=== PATIENT | female | born 1965 | race African-American/Black ===

== ENCOUNTER 2019-11-16 17:11 | Emergency (ER) | payer MEDICAID, OTHER ==
[~2019-11-16] VITALS: Ht 154.9 cm; Wt 84.4 kg
[2019-11-16] MEDS ORDERED: KETOROLAC TROMETH 60MG/2ML VIAL IM ONE (17:30)
[2019-11-16] MEDS ORDERED: KETOROLAC TROMETH 60MG/2ML VIAL ONE (17:30)
[2019-11-16 17:41] VITALS: BP 181/94
== END 2019-11-16 19:00 | disposition home or self-care (01) ==
LOC: ER 17:11
DX: G89.29 Other chronic pain (principal); M54.5 Low back pain
CPT/HCPCS: 96372; 99283; J1885

== ENCOUNTER 2019-12-05 19:52 | Inpatient (IN) | payer MEDICAID ==
[~2019-12-05] VITALS: Ht 154.9 cm; Wt 89.3 kg
[2019-12-05 22:55] LABS: Basophils # (auto) 0 10 ^3/uL (0-0.2); Basophils % (auto) 0.3 % (0.0-2.0); Eosinophils # (auto) 0 10 ^3/uL (0-0.8); Hematocrit 31.7 % (36.0-46.0); Hemoglobin 9.5 g/dL (12.2-16.2); Lymphocytes # (auto) 0.6 10 ^3/uL (0.4-5.4); Lymphocytes % (auto) 5.3 % (10.0-50.0); Mean Corpuscular Hemoglobin 20.3 pg (28.0-32.0); Mean Corpuscular Hgb Conc. 30.1 g/dL (32.0-36.0); Mean Corpuscular Volume 67.2 fL (80.0-100.0); Monocytes # (auto) 0.6 10 ^3/uL (0-1.3); Monocytes % (auto) 5.3 % (0.0-12.0); Neutrophils # (auto) 10.8 10 ^3/uL (1.6-8.6); Neutrophils % (auto) 89.1 % (37.0-80.0); Platelet Count (auto) 191 10^3/uL (140-450); Red Blood Cells 4.71 10^6/uL (4.0-5.20); White Blood Cell 12.1 10^3/uL (4.4-10.8)
[2019-12-05 23:03] LABS: INR 1.33 (0.9-1.15); Partial Thromboplastin Time 53.8 sec (23.64-32.05)
[2019-12-05 23:05] LABS: Albumin 2.9 g/dL (3.4-5.0); Calcium 8.6 mg/dL (8.5-10.1); Magnesium 1.6 mg/dL (1.6-2.6); Potassium 3.5 mmol/L (3.5-5.1)
[2019-12-05 23:07] LABS: Lactic Acid w/Reflex 2.1 mmol/L (0.4-2.0)
[2019-12-05 23:11] LABS: BUN/Creatinine Ratio 14.4; Bilirubin, Total 0.8 mg/dL (0.2-1.0); Total Protein 7.7 g/dL (6.4-8.2)
[2019-12-06] MEDS ORDERED: cefTRIAXone 1GM/50ML D5W 50 ML IV ONE (02:15)
[2019-12-06] MEDS ORDERED: CLINDAMYCIN 900MG IV 50 ML IV ONE (02:15)
[2019-12-06] MEDS ORDERED: SODIUM CHLORIDE 0.9% 1,000 ML IV SCH ×2 (02:36)
[2019-12-06] MEDS ORDERED: ONDANSETRON HCL 4 MG/2 ML VIAL IV PRN (02:45)
[2019-12-06] MEDS ORDERED: ACETAMINOPHEN 325 MG TAB PO PRN (02:45)
[2019-12-06] MEDS ORDERED: DEXTROSE (50%) 50ML SYRG IV PRN (02:45)
[2019-12-06] MEDS ORDERED: ACETAMINOPHEN 500 MG TAB PO PRN (02:45)
[2019-12-06] MEDS ORDERED: NITROGLYCERIN 0.4 MG SL TAB SL PRN (02:45)
[2019-12-06] MEDS ORDERED: MORPHINE SULF INJ 2 MG/ML SYRINGE 1ML IV PRN (02:45)
[2019-12-06 04:40] VITALS: BP 153/90
--- NOTE | 2019-12-06 04:40 | NUR ---
Telemetry admit from [facility] admitted to Telemetry unit. Patient oriented to EMMA TOMLINSON RN primary RN, unit, room, bed, and unit policies regarding patient care and visiting hours. Patient now on continuous telemetry monitoring, tele box # 5 and telemetry reading on arrival to unit is SINUS TACHYCARDIA AT 125 BEATS PER MINUTE. Patient weighed by bedscale and encouraged to call if they need something. All questions and concerns addressed, patient verbalized understanding. Bed in lowest locked position, side rails up x2, call light within reach. Will round every hour and as needed and continue to monitor.
[2019-12-06] MEDS: ACCU-CHEK COMFORT CURVE STRIP VI SCH ×6 (05:09→23:44)
[2019-12-06] MEDS: InsuLIN REG 1unit/0.01ml Soln (100units/ml) SC SCH ×6 (05:18→23:48)
[2019-12-06] MEDS: HYDROcodone-ACET 5/325MG TAB PO PRN ×2 (05:52→17:03)
[2019-12-06] MEDS ORDERED: ALBUTEROL SULF HFA 90MCG INH 200DOSE IN SCH ×2 (06:00)
--- NOTE | 2019-12-06 06:00 | NUR ---
Wound care photos obtained of patient's sacrum, patient tolerated well. Will fill out wound care form and place in wound care box. Will continue care.
--- NOTE | 2019-12-06 06:00 | NUR ---
Nasal MRSA swab collected and sent to lab via bullet. Patient tolerated well. Will continue care.
--- NOTE | 2019-12-06 07:15 | NUR ---
Closing Note Patient lying in bed, eyes closed, respirations even and unlabored, appears asleep. No s/s of distress. Care endorsed to dayshift RN.
[2019-12-06 08:00] VITALS: BP 111/70
--- NOTE | 2019-12-06 08:00 | NUR ---
Opening Shift Note Assumed care of patient, awake and alert. No S/S /SOB or pain. Patient restless in bed, positions change, dark and quiet environment provided for comfort. Instructed on POC and to call for assist PRN, will continue to monitor for changes Q1hr and PRN. Fall precautions in place per safety protocol.
[2019-12-06] MEDS ORDERED: AML5T PO (09:18)
[2019-12-06] MEDS ORDERED: SERT-274 PO (09:18)
[2019-12-06] MEDS ORDERED: TRAZ50TA2 PO (09:18)
[2019-12-06] MEDS ORDERED: INDO25CA18 PO (09:18)
[2019-12-06] MEDS ORDERED: OMEP20TA PO (09:18)
[2019-12-06] MEDS ORDERED: RIV20T PO (09:18)
[2019-12-06] MEDS: MORPHINE SULF INJ 2 MG/ML SYRINGE 1ML IV PRN ×2 (09:40→23:05)
--- NOTE | 2019-12-06 09:42 | NUR ---
PAIN Patient requesting pain medication for pain 03/31. Administered morphine at this time per pain scale. Will cont to monitor patient.
[2019-12-06] MEDS ORDERED: DOXYCYCLINE 100 MG TAB/CAP PO SCH (10:00)
[2019-12-06] MEDS ORDERED: ASCORBIC ACID 1,000 MG TAB PO SCH (10:00)
[2019-12-06] MEDS ORDERED: ZINC SULFATE 220mg CAP or TAB PO SCH (10:00)
[2019-12-06] MEDS ORDERED: ENOXAPARIN SOD 40 MG/0.4 ML SYRINGE SC SCH (10:00)
[2019-12-06] MEDS ORDERED: CHOLECALCIFEROL (VITD3) 1,000UNIT=25mCg TAB PO SCH (10:00)
[2019-12-06 10:42] LABS: Basophils # (auto) 0 10 ^3/uL (0-0.2); Basophils % (auto) 0.2 % (0.0-2.0); Eosinophils # (auto) 0 10 ^3/uL (0-0.8); Mean Corpuscular Volume 66.8 fL (80.0-100.0); Neutrophils # (auto) 6.2 10 ^3/uL (1.6-8.6)
[2019-12-06 10:45] LABS: Hematocrit 33.1 % (36.0-46.0); Hemoglobin 10.1 g/dL (12.2-16.2); Lymphocytes # (auto) 0.7 10 ^3/uL (0.4-5.4); Lymphocytes % (auto) 10.4 % (10.0-50.0); Mean Corpuscular Hemoglobin 20.3 pg (28.0-32.0); Mean Corpuscular Hgb Conc. 30.4 g/dL (32.0-36.0); Monocytes # (auto) 0.3 10 ^3/uL (0-1.3); Monocytes % (auto) 4.3 % (0.0-12.0); Neutrophils % (auto) 85.1 % (37.0-80.0); Nucleated Red Blood Cells % 0.2 %; Platelet Count (auto) 209 10^3/uL (140-450); Red Blood Cells 4.96 10^6/uL (4.0-5.20); Red Cell Distribution Width 18.2 % (11.8-14.3); White Blood Cell 7.2 10^3/uL (4.4-10.8)
[2019-12-06 10:54] LABS: Calcium 8.4 mg/dL (8.5-10.1); Potassium 3.4 mmol/L (3.5-5.1)
[2019-12-06 10:56] LABS: BUN/Creatinine Ratio 15.8
--- NOTE | 2019-12-06 11:10 | NUR ---
COVID Patient covid-19 results back negative. Patient will be transferred to room 218B with primary RN Lalito.
--- NOTE | 2019-12-06 11:11 | NUR ---
Hospitalist at bedside MD Josue at bedside, aware of patient status. Per MD Izquierdo, she will put in orders for Abx and get a surgical consult. Will cont to monitor patient at this time.
--- NOTE | 2019-12-06 12:14 | NUR ---
Patient transferred to room 218b with MELISSA Starkey.
[2019-12-06] MEDS ORDERED: LORazepam 0.5 MG TAB PO PRN (12:15)
[2019-12-06] MEDS ORDERED: POTASSIUM EFFERVESENT TAB 25 MEQ PO ONE (12:15)
--- NOTE | 2019-12-06 12:30 | NUR ---
PT IN LOW FOWLERS, AWAKE, ALERT, ORIENTED PT TO ROM ENVIRONMENT. PT ABLE TO VERBALIZE NEEDS, EFFORTLESS BREATHING. BED IN LOWEST POSITION, CALL LIGHT WITHIN REACH. WILL CONTINUE TO MONITOR.
[2019-12-06 13:00] VITALS: BP 116/63
[2019-12-06] MEDS ORDERED: MAGNESIUM OXIDE 400 MG TAB PO ONE (13:00)
[2019-12-06] MEDS: LINEZOLID 600MG/300ML 300 ML IV SCH ×2 (13:10→23:30)
[2019-12-06] MEDS: SODIUM CHLORIDE 0.9% 1,000 ML IV SCH (13:11)
[2019-12-06] MEDS ORDERED: OMNIPAQUE ORAL SOLN 500ml 12mg/ml PO ONE (13:26)
[2019-12-06] MEDS: metroNIDAZOLE 500 MG TAB PO SCH ×2 (13:33→23:30)
[2019-12-06] MEDS: MEROPENEM 1GM IVPB 100 ML IV SCH ×2 (15:16→20:00)
[2019-12-06] MEDS ORDERED: IOHEXOL 300 MG/ML 100ML BOTTLE IJ ONE (15:50)
[2019-12-06] MEDS: RIVAROXABAN 20 MG TAB PO SCH (16:56)
[2019-12-06 17:00] VITALS: BP 129/57
--- NOTE | 2019-12-06 19:25 | NUR ---
opening note pt A&Ox4. respirations even and nonlabored on room air. POC discussed. bed in low locked position, call light within reach.
[2019-12-06 22:00] VITALS: BP 126/57
--- NOTE | 2019-12-06 23:00 | NUR ---
pain c/o pain at upper right gluteal area, /10. pt will be medicated appropriately.
[2019-12-06] MEDS: traZODone HCL 50 MG TAB PO SCH (23:30)
[2019-12-07] MEDS: MEROPENEM 1GM IVPB 100 ML IV SCH ×3 (03:30→20:24)
[2019-12-07] MEDS: ACCU-CHEK COMFORT CURVE STRIP VI SCH ×6 (03:31→23:42)
[2019-12-07] MEDS: InsuLIN REG 1unit/0.01ml Soln (100units/ml) SC SCH ×6 (03:33→23:41)
[2019-12-07] MEDS: metroNIDAZOLE 500 MG TAB PO SCH ×3 (05:06→22:06)
--- NOTE | 2019-12-07 05:07 | NUR ---
PAIN c/o pain at right upper gluteal area, 8/10. will medicate pt appropriately
[2019-12-07] MEDS: MORPHINE SULF INJ 2 MG/ML SYRINGE 1ML IV PRN (05:13)
[2019-12-07 05:59] VITALS: BP 105/79
[2019-12-07 06:32] LABS: Basophils # (auto) 0 10 ^3/uL (0-0.2); Basophils % (auto) 0.3 % (0.0-2.0); Eosinophils # (auto) 0 10 ^3/uL (0-0.8); Eosinophils % (auto) 0.1 % (0.0-7.0); Hematocrit 30.5 % (36.0-46.0); Hemoglobin 9.4 g/dL (12.2-16.2); Lymphocytes # (auto) 0.8 10 ^3/uL (0.4-5.4); Lymphocytes % (auto) 11.4 % (10.0-50.0); Mean Corpuscular Hemoglobin 20.3 pg (28.0-32.0); Mean Corpuscular Hgb Conc. 30.9 g/dL (32.0-36.0); Mean Corpuscular Volume 65.5 fL (80.0-100.0); Monocytes # (auto) 0.3 10 ^3/uL (0-1.3); Monocytes % (auto) 4.8 % (0.0-12.0); Neutrophils # (auto) 5.9 10 ^3/uL (1.6-8.6); Neutrophils % (auto) 83.4 % (37.0-80.0); Nucleated Red Blood Cells % 0.1 %; Platelet Count (auto) 218 10^3/uL (140-450); Red Blood Cells 4.65 10^6/uL (4.0-5.20); Red Cell Distribution Width 18.1 % (11.8-14.3)
[2019-12-07 06:56] LABS: Albumin 2.4 g/dL (3.4-5.0); Calcium 8.6 mg/dL (8.5-10.1); Potassium 3.9 mmol/L (3.5-5.1)
[2019-12-07 07:00] LABS: BUN/Creatinine Ratio 17.2; Bilirubin, Total 0.5 mg/dL (0.2-1.0); Total Protein 7.1 g/dL (6.4-8.2)
--- NOTE | 2019-12-07 07:21 | NUR ---
closing note pt resting in left lateral position. pt does not show s/s of pain or discomfort at this time. respirations even and nonlabored on room air. bed in low locked position, call light within reach. endorsed care to MELISSA Starkey.
[2019-12-07 09:00] VITALS: BP 110/77
[2019-12-07] MEDS: SODIUM CHLORIDE 0.9% 1,000 ML IV SCH (09:15)
[2019-12-07] MEDS: LINEZOLID 600MG/300ML 300 ML IV SCH ×2 (09:47→22:06)
[2019-12-07] MEDS: MAGNESIUM OXIDE 400 MG TAB PO SCH (09:47)
--- NOTE | 2019-12-07 10:29 | NUR ---
DR. ALTMAN IN TO SEE PT. PLAN OF CARE DISCUSSED.
--- NOTE | 2019-12-07 11:07 | NUR ---
WOUND CARE NOTE: WOUND CARE IN TO SEE PATIENT PER WOUND CARE REQUEST. PATIENT ADMITTED TO [facility] FOR RULE OUT COVID AND HYPERGLYCEMIA. PATIENT'S SHAYNA SCORE IS 21. BEDSIDE NURSE NOTED SKIN INTEGRITY ISSUE UPON ADMISSION. PHOTOGRAPH TAKEN AT THAT TIME FOR REFERENCE. PATIENT HAS A SKIN TEAR TO THE RIGHT BUTTOCK. PATIENT ADVISES THAT IT STARTING ITCHING AND SHE STARTED SCRATCHING BACK THERE. CLEANSED WITH NORMAL SALINE, PATTED DRY WITH STERILE GAUZE, APPLIED THERAHONEY AND OPTIFOAM GENTLE SACRAL DRESSING. RECOMMEND: BID/PRN DRESSING CHANGE TO SACRUM. SKIN/WOUND CARE PLAN. DIETARY CONSULT. CONTINUED MONITORING BY WOUND CARE TEAM. Addendum: 12/07/19 at 1532 by JERRY KOHLER RN RN Amended: Links added.
[2019-12-07] MEDS: Glucerna Carbsteady SHAKE Vanilla 8oz PO SCH ×2 (12:00→18:49)
[2019-12-07 13:00] VITALS: BP 113/58
[2019-12-07 17:00] VITALS: BP 117/53
[2019-12-07] MEDS: RIVAROXABAN 20 MG TAB PO SCH (17:04)
[2019-12-07] MEDS: HYDROcodone-ACET 5/325MG TAB PO PRN ×2 (17:04→22:10)
--- NOTE | 2019-12-07 17:33 | NUR ---
DR. CALVERT IN TO SEE PT. PLAN OF CARE DISCUSSED.
--- NOTE | 2019-12-07 18:30 | NUR ---
COOLING MEASURES IN PLACE.
--- NOTE | 2019-12-07 19:05 | NUR ---
opening note pt A&Ox4. respirations even and nonlabored on room air. pt pulled IV access from right AC. IV catheter fully intact. pressure bandage applied. will start new IV access. POC discussed. bed in low locked position, rails x2, call light within reach.
--- NOTE | 2019-12-07 20:22 | NUR ---
IV access 22g placed at right AC, one attempt. pt tolerated IV insertion well. education given.
--- NOTE | 2019-12-07 21:34 | NUR ---
endorsed care to MELISSA Joy.
[2019-12-07 22:00] VITALS: BP 105/65
[2019-12-07] MEDS: traZODone HCL 50 MG TAB PO SCH (22:06)
--- NOTE | 2019-12-07 22:41 | NUR ---
Report given by Pia Mcgrath.
[2019-12-08] MEDS: MORPHINE SULF INJ 2 MG/ML SYRINGE 1ML IV PRN (01:48)
--- NOTE | 2019-12-08 02:33 | NUR ---
Report given to Coty Tom to assume the care.
--- NOTE | 2019-12-08 03:02 | NUR ---
Assumed care of patient from MELISSA Lambert. Patient is resting comfortably with eyes closed. Respirations are even and non-labored. No distress noted. Bed is in low locked position with side rails up x2. Call light is within reach. Will continue to monitor for changes PRN.
[2019-12-08] MEDS: MEROPENEM 1GM IVPB 100 ML IV SCH ×2 (03:53→11:35)
[2019-12-08] MEDS: ACCU-CHEK COMFORT CURVE STRIP VI SCH ×2 (03:53→08:33)
[2019-12-08] MEDS: InsuLIN REG 1unit/0.01ml Soln (100units/ml) SC SCH ×2 (03:54→08:00)
[2019-12-08] MEDS: HYDROcodone-ACET 5/325MG TAB PO PRN ×4 (03:59→22:05)
[2019-12-08 05:00] VITALS: BP 133/65
[2019-12-08] MEDS: SODIUM CHLORIDE 0.9% 1,000 ML IV SCH (05:15)
--- NOTE | 2019-12-08 05:32 | NUR ---
TEMPERATURE oral temperature is 99.7. Cooling measures in place.
[2019-12-08] MEDS: metroNIDAZOLE 500 MG TAB PO SCH ×3 (06:04→21:57)
[2019-12-08 06:13] LABS: Basophils # (auto) 0 10 ^3/uL (0-0.2); Eosinophils # (auto) 0 10 ^3/uL (0-0.8); Hemoglobin 8.7 g/dL (12.2-16.2); Lymphocytes # (auto) 0.7 10 ^3/uL (0.4-5.4); Mean Corpuscular Hemoglobin 20.6 pg (28.0-32.0); Monocytes # (auto) 0.5 10 ^3/uL (0-1.3); Nucleated Red Blood Cells % 0.1 %
[2019-12-08 06:15] LABS: Basophils % (auto) 0.5 % (0.0-2.0); Hematocrit 27.5 % (36.0-46.0); Lymphocytes % (auto) 9.2 % (10.0-50.0); Mean Corpuscular Hgb Conc. 31.5 g/dL (32.0-36.0); Mean Corpuscular Volume 65.5 fL (80.0-100.0); Monocytes % (auto) 6.4 % (0.0-12.0); Neutrophils # (auto) 6.6 10 ^3/uL (1.6-8.6); Neutrophils % (auto) 83.9 % (37.0-80.0); Platelet Count (auto) 254 10^3/uL (140-450); Red Cell Distribution Width 18.4 % (11.8-14.3); White Blood Cell 7.9 10^3/uL (4.4-10.8)
[2019-12-08 06:25] LABS: INR 1.23 (0.9-1.15); Partial Thromboplastin Time 51.3 sec (23.64-32.05)
[2019-12-08 06:32] LABS: Potassium 3.5 mmol/L (3.5-5.1)
[2019-12-08 06:43] LABS: Albumin 2.2 g/dL (3.4-5.0); BUN/Creatinine Ratio 24.6; Bilirubin, Total 0.3 mg/dL (0.2-1.0); Calcium 8.3 mg/dL (8.5-10.1); Total Protein 6.6 g/dL (6.4-8.2)
[2019-12-08] MEDS: Glucerna Carbsteady SHAKE Vanilla 8oz PO SCH ×3 (08:00→17:29)
[2019-12-08] MEDS: LINEZOLID 600MG/300ML 300 ML IV SCH (08:33)
[2019-12-08 09:00] VITALS: BP 129/59
[2019-12-08] MEDS: MAGNESIUM OXIDE 400 MG TAB PO SCH (10:00)
--- NOTE | 2019-12-08 10:30 | NUR ---
Paged Britney Naranjo to find out if patient will still have procedure, as US is negative for abscess.
--- NOTE | 2019-12-08 11:30 | NUR ---
Jose A called back, stated patient would not get surgery today and to put in a diet for patient.
--- NOTE | 2019-12-08 11:30 | NUR ---
Saadia at bedside, stated accu checks could be DC'd.
--- NOTE | 2019-12-08 11:46 | NUR ---
Est energy needs 4265-2570 kcal (20-25kcal/kg of BW) Est protein needs 90-99g (1-1.1g/kg BW, inc need for wound) Will reassess prn. Consider MVI/C BID for wound healing Addendum: 12/08/19 at [address] Amended: Links added.
[2019-12-08 13:00] VITALS: BP 120/81
--- NOTE | 2019-12-08 13:40 | NUR ---
Dressing change to patients left buttock wound per order. Patient tolerated well.
[2019-12-08] MEDS ORDERED: VANCOMYCIN PER PHARMACY 0 MG IV SCH (16:45)
[2019-12-08 17:00] VITALS: BP 123/61
--- NOTE | 2019-12-08 17:01 | NUR ---
Cooling measures in place for patients fever 101.3.
[2019-12-08] MEDS: RIVAROXABAN 20 MG TAB PO SCH (17:29)
[2019-12-08] MEDS: VANCOMYCIN 1GM/250ML 250 ML IV SCH (17:29)
--- NOTE | 2019-12-08 18:06 | NUR ---
Recheck on Temp 100.2F, patient continuing cooling measures.
--- NOTE | 2019-12-08 19:08 | NUR ---
Report given, care endorsed to MELISSA Joy
[2019-12-08] MEDS: PIPERACILLIN-TAZOB 3.375GM 100 ML IV SCH (19:46)
--- NOTE | 2019-12-08 20:00 | NUR ---
Opening Shift Note Assumed care of patient, awake, alert and oriented. No S/S of distress/SOB or pain. Instructed on POC and to call for assist PRN. Bed locked, in lowest position, call light within reach, side rails up x2. Will continue to monitor for changes Q1hr and PRN.
--- NOTE | 2019-12-08 21:26 | NUR ---
Elevated Temp Patients temp was 102.3. Patient stated that her eyes swell and she gets welts on her body when she takes tylenol. Cooling measures in place. Will reassess.
[2019-12-08] MEDS: traZODone HCL 50 MG TAB PO SCH (21:57)
[2019-12-08 22:00] VITALS: BP 158/70
--- NOTE | 2019-12-09 00:12 | NUR ---
TEMP REASSESSED Temperature now 99.2. Will continue to monitor
[2019-12-09] MEDS: SODIUM CHLORIDE 0.9% 1,000 ML IV SCH ×2 (01:15→21:15)
[2019-12-09] MEDS: PIPERACILLIN-TAZOB 3.375GM 100 ML IV SCH ×4 (02:08→19:44)
[2019-12-09 05:00] VITALS: BP 129/63
[2019-12-09] MEDS: VANCOMYCIN 1GM/250ML 250 ML IV SCH ×2 (06:28→17:28)
[2019-12-09] MEDS: metroNIDAZOLE 500 MG TAB PO SCH ×3 (06:29→21:11)
[2019-12-09 06:34] LABS: Basophils # (auto) 0 10 ^3/uL (0-0.2); Eosinophils # (auto) 0 10 ^3/uL (0-0.8); Eosinophils % (auto) 0.1 % (0.0-7.0); Monocytes # (auto) 0.4 10 ^3/uL (0-1.3); Red Blood Cells 4.41 10^6/uL (4.0-5.20)
[2019-12-09 06:35] LABS: Basophils % (auto) 0.7 % (0.0-2.0); Hematocrit 28.6 % (36.0-46.0); Lymphocytes # (auto) 1.1 10 ^3/uL (0.4-5.4); Lymphocytes % (auto) 16.4 % (10.0-50.0); Mean Corpuscular Hemoglobin 20.4 pg (28.0-32.0); Mean Corpuscular Hgb Conc. 31.4 g/dL (32.0-36.0); Monocytes % (auto) 5.7 % (0.0-12.0); Neutrophils # (auto) 5.2 10 ^3/uL (1.6-8.6); Neutrophils % (auto) 77.1 % (37.0-80.0); Platelet Count (auto) 274 10^3/uL (140-450); Red Cell Distribution Width 18.8 % (11.8-14.3); White Blood Cell 6.7 10^3/uL (4.4-10.8)
[2019-12-09] MEDS: HYDROcodone-ACET 5/325MG TAB PO PRN ×4 (06:43→21:11)
[2019-12-09 06:45] LABS: BUN/Creatinine Ratio 21.7; Calcium 8.8 mg/dL (8.5-10.1); Potassium 3.6 mmol/L (3.5-5.1)
--- NOTE | 2019-12-09 06:53 | NUR ---
DRESSING CHANGE dressing change to patient's left buttock. Patient tolerated well.
--- NOTE | 2019-12-09 07:50 | NUR ---
Opening Note Assumed pt care from NOC RN. Pt is a/ox4 with no s/s of distress or SOB. Pt is currently laying in bed with no complaints at this time. Discussed POC with pt; pt verbalized understanding. Safety measures maintained with call light within reach, bed in lowest position and side rails up. Will continue to monitor.
[2019-12-09] MEDS: Glucerna Carbsteady SHAKE Vanilla 8oz PO SCH ×3 (08:00→17:28)
[2019-12-09 09:00] VITALS: BP 134/77
[2019-12-09] MEDS: MAGNESIUM OXIDE 400 MG TAB PO SCH (09:02)
--- NOTE | 2019-12-09 09:59 | NUR ---
Dressing Changed Dressing to R buttocks changed. Pt tolerated well.
--- NOTE | 2019-12-09 10:46 | NUR ---
Dr Cochran at Bedside MD to see pt. Discussed POC with pt and need to stay another day due to increase in temperature. MD requests that blood cultures be repeated if pt's temperature is greater than 101. Will continue to monitor and notify NOC RN as needed.
[2019-12-09] MEDS ORDERED: ACETAMINOPHEN 500 MG TAB PO PRN (11:00)
[2019-12-09] MEDS ORDERED: SERTRALINE HCL 50 MG TAB PO ONE (11:00)
--- NOTE | 2019-12-09 12:48 | NUR ---
IV D/C'ed \IV to pt's R AC removed, no longer intact. Catheter was removed full intact. Site is asymptomatic. Pressure was applied to site for 3 minutes with gauze and then wrapped in coband. Pt informed of need to place another IV; pt requests that we insert a new IV after she eats her lunch. Will implement.
--- NOTE | 2019-12-09 12:55 | NUR ---
Elevated Temp Reported Temperature of 99.9 reported; cooling measures implemented, will continue to monitor.
[2019-12-09 13:00] VITALS: BP 158/76
--- NOTE | 2019-12-09 14:20 | NUR ---
IV Insertion 20G to pt's L FA inserted. One attempt made. Pt tolerated insertion well. Clean/sterile technique used.
--- NOTE | 2019-12-09 16:09 | NUR ---
assessment Patient is a 54 year old female who is alert and oriented. Patients cognitive abilities are intact. Prior to admission patient lived home with family and functioned with assistance. Per patient she will return home to her prior living arrangements post discharge and family will transport her home. Patients PCP is Dr Manuel. Patient has a fww for home use. Patient has a ulcer on her lower back and Sepsis. Patient may need home health for wound care and possible IV ABX. I informed patient she has a right to speak to a clinical social work aide regarding all care. I informed patient she has a right to participate in any and all discharge planning. Patient does not have a POA and advanced directive. I have offered patient information on POA and advanced directives. I informed the patient the advantages and benefits of having an Advanced Directive. Patient verbalized understanding and agreed to discharge plan. Addendum: 12/09/19 at 1611 by Aaliyah GUZMÁN Amended: Links added.
[2019-12-09 17:00] VITALS: BP 146/64
[2019-12-09] MEDS: FERROUS SULFATE 325 MG TAB PO SCH (17:28)
[2019-12-09] MEDS: RIVAROXABAN 20 MG TAB PO SCH (17:28)
--- NOTE | 2019-12-09 18:42 | NUR ---
Dressing Changed Dressing to pt's buttocks changed.
--- NOTE | 2019-12-09 20:40 | NUR ---
STOOL SPECIMEN SENT TO LAB FOR C-DIFF, STOOL OCCULT, STOOL WBC, AND STOOL CX.
[2019-12-09] MEDS: traZODone HCL 50 MG TAB PO SCH (21:11)
[2019-12-09 22:00] VITALS: BP 156/69
[2019-12-10] MEDS: HYDROcodone-ACET 5/325MG TAB PO PRN ×3 (00:55→12:32)
[2019-12-10] MEDS: PIPERACILLIN-TAZOB 3.375GM 100 ML IV SCH ×2 (02:25→07:27)
[2019-12-10 05:00] VITALS: BP 134/88
[2019-12-10] MEDS: metroNIDAZOLE 500 MG TAB PO SCH (05:05)
[2019-12-10 05:55] LABS: Basophils # (auto) 0 10 ^3/uL (0-0.2); Eosinophils # (auto) 0 10 ^3/uL (0-0.8); Lymphocytes # (auto) 1.2 10 ^3/uL (0.4-5.4); Lymphocytes % (auto) 22.5 % (10.0-50.0); Neutrophils # (auto) 3.6 10 ^3/uL (1.6-8.6)
[2019-12-10 05:57] LABS: Basophils % (auto) 0.9 % (0.0-2.0); Hematocrit 29.9 % (36.0-46.0); Hemoglobin 9.3 g/dL (12.2-16.2); Mean Corpuscular Hemoglobin 20.5 pg (28.0-32.0); Mean Corpuscular Hgb Conc. 31.2 g/dL (32.0-36.0); Mean Corpuscular Volume 65.7 fL (80.0-100.0); Monocytes # (auto) 0.4 10 ^3/uL (0-1.3); Monocytes % (auto) 8.2 % (0.0-12.0); Neutrophils % (auto) 68.4 % (37.0-80.0); Nucleated Red Blood Cells % 0.3 %; Platelet Count (auto) 290 10^3/uL (140-450); Red Blood Cells 4.55 10^6/uL (4.0-5.20); Red Cell Distribution Width 18.9 % (11.8-14.3); White Blood Cell 5.2 10^3/uL (4.4-10.8)
--- NOTE | 2019-12-10 06:08 | NUR ---
SACRUM DRESSING DONE
[2019-12-10 06:12] LABS: Albumin 2.3 g/dL (3.4-5.0); Calcium 8.6 mg/dL (8.5-10.1); Potassium 3.2 mmol/L (3.5-5.1)
[2019-12-10 06:17] LABS: BUN/Creatinine Ratio 15.7; Bilirubin, Total 0.3 mg/dL (0.2-1.0); Total Protein 6.9 g/dL (6.4-8.2)
[2019-12-10] MEDS: VANCOMYCIN 1GM/250ML 250 ML IV SCH (06:23)
[2019-12-10] MEDS: Glucerna Carbsteady SHAKE Vanilla 8oz PO SCH ×2 (07:27→12:00)
[2019-12-10] MEDS: FERROUS SULFATE 325 MG TAB PO SCH (07:27)
--- NOTE | 2019-12-10 07:30 | NUR ---
Opening Note Assumed pt care from NOC RN. Pt is a/ox4 with no s/s of distress or SOB. Pt is currently laying in bed with no complaints at this time. Discussed POC with pt; pt verbalized understanding. Dressing to buttocks clean, dry, and intact. Safety measures maintained with call light within reach, bed in lowest position and side rails up. Will continue to monitor.
[2019-12-10 09:00] VITALS: BP 148/68
[2019-12-10] MEDS ORDERED: SERTRALINE HCL 50 MG TAB PO SCH (10:00)
[2019-12-10] MEDS ORDERED: MAGNESIUM OXIDE 400 MG TAB PO SCH (10:00)
--- NOTE | 2019-12-10 11:21 | NUR ---
Dr Cochran at Bedside MD to see pt. Plans to d/c pt home today. Requests pt be sent home with wound care. Will implement.
[2019-12-10] MEDS ORDERED: POTASSIUM CHL 20 Meq TABLET PO ONE (11:30)
--- NOTE | 2019-12-10 11:40 | NUR ---
D/C Photo For Reference D/C photo taken of wound. Wound care provided at this time.
[2019-12-10 12:07] VITALS: BP 148/68
--- NOTE | 2019-12-10 12:10 | NUR ---
IV D/C'ed IV to pt's L FA removed. Catheter was removed fully intact. Site is asymptomatic. Pressure was applied to site for 3 minutes with gauze and then wrapped in coban. Pt instructed to keep dressing on for 30 minutes.
--- NOTE | 2019-12-10 13:18 | NUR ---
Pt D/C'ed off Unit Pt taken off unit via wheelchair. Pt is a/ox4 with no s/s of distress or SOB. Pt took all belongings, education material, prescriptions and information regarding follow up appointments. All questions were answered. IV was d/c'ed prior to d/c.
[2019-12-10] MEDS ORDERED: VANCOMYCIN 1GM/250ML 250 ML IV SCH (14:00)
[2019-12-10] MEDS ORDERED: PIPERACILLIN-TAZOB 3.375GM 100 ML IV SCH (15:00)
== END 2019-12-10 13:26 | disposition home or self-care (01) | DRG 720 ==
LOC: ER 19:52 → OVERFLOW 19:53 → EAST 12-06 04:48 → TELE-EAST 12-06 06:20 → TELE-CENTR 12-06 12:13 → CENTRAL 12-09 20:08
PROVIDERS: ADMIT Hospitalist; ATTEND Internal Medicine
DX: A40.0 Sepsis due to streptococcus, group A (principal); N17.0 Acute kidney failure with tubular necrosis; E44.0 Moderate protein-calorie malnutrition; E11.22 Type 2 diabetes mellitus with diabetic chronic kidney disease; E11.51 Type 2 diabetes mellitus with diabetic peripheral angiopathy without gangrene; L03.317 Cellulitis of buttock; E87.1 Hypo-osmolality and hyponatremia; E83.42 Hypomagnesemia; E87.6 Hypokalemia; E78.5 Hyperlipidemia, unspecified; L89.90 Pressure ulcer of unspecified site, unspecified stage; N18.9 Chronic kidney disease, unspecified; L05.91 Pilonidal cyst without abscess; J44.9 Chronic obstructive pulmonary disease, unspecified; F32.9 Major depressive disorder, single episode, unspecified; E66.9 Obesity, unspecified; I12.9 Hypertensive chronic kidney disease with stage 1 through stage 4 chronic kidney disease, or unspecified chronic kidney disease; D63.8 Anemia in other chronic diseases classified elsewhere; G89.4 Chronic pain syndrome; D53.9 Nutritional anemia, unspecified; Z72.0 Tobacco use; Z79.4 Long term (current) use of insulin; Z68.37 Body mass index [BMI] 37.0-37.9, adult; Z88.2 Allergy status to sulfonamides; Z03.818 Encounter for observation for suspected exposure to other biological agents ruled out
CPT/HCPCS: 36415; 71045; 74177; 76775; 76881; 80048; 80053; 80202; 82270; 82378; 82728; 82962; 83036; 83540; 83550; 83605; 83615; 83735; 84443; 84484; 85025; 85048; 85610; 85730; 86141; 87040; 87045; 87070; 87081; 87205; 87427; 87493; 87804; 87880; 93005; 93306; G0378; J0696; J1815; J2185; J2405; J2543; J3490